=== PATIENT | male | born 2000 | race Two or more races ===

== ENCOUNTER 2020-07-31 02:59 | Emergency (ER) | payer SELFPAY ==
[~2020-07-31] VITALS: Ht 165.1 cm; Wt 63.6 kg
[2020-07-31 03:00] VITALS: BP 109/71
== END 2020-07-31 04:00 | disposition left against medical advice (07) ==
LOC: EMS 02:59
DX: R31.9 Hematuria, unspecified (principal); R10.9 Unspecified abdominal pain; Z53.21 Procedure and treatment not carried out due to patient leaving prior to being seen by health care provider